=== PATIENT | male | born 1980 | race Caucasian/White ===

== ENCOUNTER 2023-10-03 14:52 | Emergency (ER) | payer SELFPAY ==
[~2023-10-03] VITALS: Ht 188 cm; Wt 86.2 kg
[2023-10-03 18:18] LABS: BASOPHILS % (AUTO) 0.5 % (0.0-2.0); EOSINOPHILS # (AUTO) 0.1 K/uL (0.0-0.7); EOSINOPHILS % (AUTO) 1.8 % (0.0-7.0); HEMATOCRIT 49.1 % (36.7-47.1); HEMOGLOBIN 16.4 g/dL (12.5-16.3); LYMPHOCYTES # (AUTO) 1.6 K/uL (0.8-4.8); LYMPHOCYTES % (AUTO) 22.7 % (20.5-51.5); MEAN CORPUSCULAR HEMOGLOBIN 30.9 uug (23.8-33.4); MEAN CORPUSCULAR HGB CONC 33 g/dL (32.5-36.3); MEAN CORPUSCULAR VOLUME 92.7 fL (73.0-96.2); MONOCYTES # (AUTO) 0.9 K/uL (0.1-1.30); MONOCYTES % (AUTO) 12.4 % (0.0-11.0); NEUTROPHILS # (AUTO) 4.4 K/uL (1.8-8.9); NEUTROPHILS % (AUTO) 62.6 % (38.5-71.5); PLATELET COUNT (AUTO) 227 K/uL (152-348); RED BLOOD CELL COUNT(AUTO) 5.29 MIL/uL (4.06-5.63); RED CELL DISTRIBUTION WIDTH 14.1 % (12.1-16.2); WHITE BLOOD COUNT (AUTO) 7.1 K/uL (3.6-10.2)
[2023-10-03 18:27] LABS: DIFFERENTIAL COMMENT 1
[2023-10-03 18:35] LABS: CALCIUM 9.2 mg/dL (8.5-10.1); CARBON DIOXIDE 29 mmol/L (21-32); CHLORIDE 107 mmol/L (98-107); CREATININE 1.2 mg/dL (0.6-1.3); GLUCOSE 115 mg/dL (74-106); POTASSIUM 3.6 mmol/L (3.5-5.1); SODIUM SERUM 148 mmol/L (136-145); UREA NITROGEN, BLOOD 21 mg/dL (7-18)
[2023-10-03 18:44] LABS: ALANINE AMINOTRANSFERASE 39 U/L (16-63); ALKALINE PHOSPHATASE 101 U/L (50-136); ASPARTATE AMINOTRANSFERASE 17 U/L (15-37); BILIRUBIN,DIRECT 0.2 mg/dL (0.0-0.2); TOTAL PROTEIN, SERUM 8.3 g/dL (6.4-8.2)
[2023-10-03] MEDS ORDERED: CYCL5TAB PO (19:50)
[2023-10-03 19:57] VITALS: BP 139/85; TEMP 98.6; O2SAT 100
== END 2023-10-03 19:58 | disposition home or self-care (01) ==
LOC: ER 14:52
DX: S16.1XXA Strain of muscle, fascia and tendon at neck level, initial encounter (principal); S70.12XA Contusion of left thigh, initial encounter; S20.213A Contusion of bilateral front wall of thorax, initial encounter; M51.26 Other intervertebral disc displacement, lumbar region; M53.3 Sacrococcygeal disorders, not elsewhere classified; M54.16 Radiculopathy, lumbar region; Z79.899 Other long term (current) drug therapy; W22.8XXA Striking against or struck by other objects, initial encounter; Y93.89 Activity, other specified; Y92.89 Other specified places as the place of occurrence of the external cause; Y99.8 Other external cause status
CPT/HCPCS: 36415; 70450; 71250; 72125; 84484; 85025; 85730; 93005; A4606; A4663